=== PATIENT | male | born 1975 | race Two or more races ===

== ENCOUNTER 2023-11-18 14:14 | Emergency (ER) | payer BC, SELFPAY ==
[2023-11-18 14:34] VITALS: BP 117/79
[2023-11-18 15:07] LABS: Urine Albumin Negative (Neg - Trace); Urine Bilirubin Negative (Negative); Urine Character Clear (Clear); Urine Color Yellow; Urine Glucose Negative (Negative); Urine Ketone Negative (Negative); Urine Leukocyte Negative (Negative); Urine Nitrite Negative (Negative); Urine Occult Blood Negative (Negative); Urine Specific Gravity 1.015 (<1.030); Urine Urobilinogen Negative (Neg - 1+)
[2023-11-18 15:26] VITALS: BP 135/76
[2023-11-18 15:51] VITALS: BP 135/94
[2023-11-18 15:59] LABS: % Basophils 0.5 % (0-2); % Immature Granulocytes 0.5 % (0-0.5); % Lymphocytes 29.9 % (20.5-51.1); % Monocytes 8.1 % (1.7-9.3); Absolute Basophils 0.1 10^3/uL (0-0.2); Absolute Eosinophils 0.2 10^3/uL (0-0.7); Absolute Immature Granulocytes 0.1 10^3/uL (0-0.05); Absolute Lymphocytes 2.8 10^3/uL (1.2-3.4); Absolute Monocytes 0.8 10^3/uL (0.1-0.6); Absolute Neutrophils 5.4 10^3/uL (1.4-6.5); Hematocrit 39.4 % (39.0-52.0); Hemoglobin 14.5 g/dL (13.0-18.0); Mean Corp Hgb Conc. 36.8 g/dL (33.0-37.0); Mean Corpuscular Hgb 30.1 pg (27.0-31.0); Mean Corpuscular Volume 81.7 fL (80.0-94.0); Mean Platelet Volume 10.5 fL (7.4-10.4); Nucleated Red Blood Cells % 0 % (-); Platelet Count 193 10^3/uL (130-400); Red Blood Cell Count 4.82 10^6/uL (4.70-6.10); Red Cell Dist. Width 12.8 % (11.5-14.5); White Blood Cell Count 9.2 10^3/uL (4.8-10.8)
[2023-11-18 16:11] LABS: ALT (SGPT) 64 U/L (0-50); AST (SGOT) 58 U/L (17-59); Albumin 4.6 g/dl (3.5-5.0); Alkaline Phosphatase 88 U/L (38-126); Blood Urea Nitrogen 12 mg/dl (9-20); Calcium 9.4 mg/dl (8.4-10.2); Carbon Dioxide 29 mmol/L (22-30); Chloride 98 mmol/L (98-107); Glucose 174 mg/dl (70-99); Lipase 150 U/L (23-300); Potassium 3.8 mmol/L (3.5-5.1); Sodium 140 mmol/L (135-145); Total Bilirubin 1.1 mg/dl (0.2-1.3); Total Protein 7.5 g/dl (6.3-8.2); eGFR > 60.00
[2023-11-18 17:30] VITALS: BP 129/78
--- NOTE | 2023-11-18 17:50 | ED.GENMED ---
History of Present Illness
General
Chief Complaint: Abdominal Pain
Source: patient and spouse
Exam Limitations: none
Time Seen by Provider: 11/18/23 14:59
Nursing documentation reviewed up to this point in time: agreed with
Travel History
Have you had any contact with someone who has COVID-19?: No
Do you have any symptoms of coronavirus? Fever > 100 degrees, chills, cough, shortness of breath, sore throat, loss of taste or smell, muscle aches, or headache?: No
History of Present Illness
History of Present Illness:
48-year-old male with past medical history of GERD diabetes presenting to the emergency department today with concerns of left lower quadrant pain ongoing but worsening over the past 2 weeks. Denies any nausea vomiting diarrhea or changes in
urination. Denies any chest pain shortness of breath or fevers
Review of Systems
Review of Systems
Allergies reviewed?: Yes
All Other Systems: ROS reviewed and negative except as documented in HPI and ROS
Phy Exam
Physical Exam
Physical Exam:
GENERAL: Alert , in no apparent distress
EYE: pupils equal and reactive
NECK: Supple, no significant adenopathy.
ENT: o/p clr, mmm.
CARDIAC: Regular rate and rhythm .
LUNGS: Clear breath sounds bilaterally, no acute respiratory distress, no wheezes/rales/rhonchi
ABDOMEN: Mild discomfort to the left lower quadrant otherwise soft, without focal tenderness, no r/g, no cvat
NEUROLOGICAL: Alert and oriented, no focal neuro deficits
SKIN: Warm and dry, skin intact.
MUSCULOSKELETAL: No edema, well perfused.
PSYCH: Normal and appropriate interaction.
Course
Orders/Labs/Results
Orders:
Orders
11/18/23 14:46
Urinalysis Reflex To Culture Urgent
Date Specimen was Collected: 11/18/23
Time Specimen was Collected: 14:37
11/18/23 15:32
CT Abd/Pel (IV only)-DH only Urgent
Comment:
Reason For Exam: llq pain
11/18/23 15:49
Complete Blood Count/With Diff Urgent
Comprehensive Metabolic Panel Urgent
Lipase Urgent
Abnormal Lab Results
11/18/23
15:49
MPV 10.5 H fL
(7.4-10.4)
Abs Immat Gran (auto) 0.1 H 10^3/uL
(0-0.05)
Absolute Monos (auto) 0.8 H 10^3/uL
(0.1-0.6)
Creatinine 0.6 L mg/dL
(0.7-1.3)
Glucose 174 H mg/dl
(70-99)
ALT 64 H U/L
(0-50)
11/18/23 15:49
11/18/23 15:49
Vital Signs
Initial and Last Documented VS:
Initial Vital Signs
Temp Pulse Resp BP Pulse Ox
98.2 F 95 18 117/79 98
11/18/23 14:34 11/18/23 14:34 11/18/23 14:34 11/18/23 14:34 11/18/23 14:34
Last Documented Vital Signs
Temp Pulse Resp BP Pulse Ox
98.2 F 95 18 135/94 96
11/18/23 14:34 11/18/23 14:34 11/18/23 14:34 11/18/23 15:51 11/18/23 15:52
MDM/Problems Addressed
MDM/Problems Addressed:
48-year-old male presenting to the emergency department today with concerns of lower abdominal pain mainly to the left lower region over the past 2 weeks. No associated nausea vomiting diarrhea. On arrival vital signs are normal. Minimal pain to
palpation noted labs unremarkable CT scan does not show emergent findings
*Critical Care Note
Total Time (30-74mins, 75-104mins- exclusive of procedures): Not Applicable
ED Attending Note
-
Portions of this chart may have been created with voice recognition software.� Occasional wrong word or��sound alike� substitutions may have occurred due to the inherent limitations of voice recognition software.
Discharge Plan
Departure
Patient Disposition: Home (Routine Discharge)
Date of Disposition: 11/18/23
Time of Disposition: 18:00
Patient with high blood pressure during this ER visit?: No
Condition: Good
Covid-19: Not Applicable
Discharge Problem:
Abdominal pain
Instructions: Abdominal Pain
Prescriptions:
New
Probiotic 3 billion cell capsule
3,000 mmu cells PO DAILY 14 Days Qty: 14 0RF
Referrals:
Connie Whaley MD [Family Provider] -
Activity Restrictions/Additional Instructions:
You came to the emergency department today with concerns of abdominal pain. Here you had a reassuring assessment with normal CT scan and labs. Please follow-up closely as an outpatient. Return to the emergency department for any worsening, new or
concerning symptoms.
Interventions
Interventions:
*General Assessment Last Done: 11/18/23 14:34
*ED COVID-19 Vaccine History Last Done: 11/18/23 14:34
Discharge Date and Time
Print Language: ROMANIAN
== END 2023-11-18 18:32 | disposition home or self-care (01) ==
LOC: EMR 14:14
PROVIDERS: Emergency Medicine; Physician Assistant; EMERGENCY PHYSICIAN Emergency Medicine; FAMILY PHYSICIAN Family Medicine
DX: R10.32 Left lower quadrant pain (principal); E11.9 Type 2 diabetes mellitus without complications; K21.9 Gastro-esophageal reflux disease without esophagitis; Z79.84 Long term (current) use of oral hypoglycemic drugs
CPT/HCPCS: 99285; 74177; 80053; 81003; 83690; 85025; Q9967

== ENCOUNTER 2023-11-22 10:36 | Emergency (ER) | payer BC, SELFPAY ==
[2023-11-22 10:49] VITALS: BP 120/75
[2023-11-22] MEDS: NSS 1000 IV (11:57)
[2023-11-22] MEDS: OMNIPAQUE 50 ML PO (12:04)
[2023-11-22 12:09] VITALS: BMI 35.3
[2023-11-22 12:14] LABS: % Basophils 0.4 % (0-2); % Eosinophils 0.8 % (0-6); % Immature Granulocytes 0.5 % (0-0.5); % Lymphocytes 25.1 % (20.5-51.1); % Neutrophils 65.2 % (42.2-75.2); Absolute Eosinophils 0.1 10^3/uL (0-0.7); Absolute Monocytes 0.6 10^3/uL (0.1-0.6); Absolute Neutrophils 5.1 10^3/uL (1.4-6.5); Hemoglobin 14.1 g/dL (13.0-18.0); Mean Corp Hgb Conc. 35.3 g/dL (33.0-37.0); Mean Corpuscular Volume 85.1 fL (80.0-94.0); Mean Platelet Volume 10.2 fL (7.4-10.4); Nucleated Red Blood Cells % 0 % (-); Platelet Count 181 10^3/uL (130-400); Red Cell Dist. Width 12.7 % (11.5-14.5); White Blood Cell Count 7.8 10^3/uL (4.8-10.8)
--- NOTE | 2023-11-22 12:17 | ED.GENMED ---
History of Present Illness
<Shaylee Aviles PA-C - Last Filed: 11/22/23 18:16>
General
Chief Complaint: Flank Pain
Source: patient
Exam Limitations: none
Time Seen by Provider: 11/22/23 11:12
Nursing documentation reviewed up to this point in time: agreed with
Travel History
Have you had any contact with someone who has COVID-19?: No
Do you have any symptoms of coronavirus? Fever > 100 degrees, chills, cough, shortness of breath, sore throat, loss of taste or smell, muscle aches, or headache?: No
History of Present Illness
History of Present Illness:
pt is a 48 y/o M with h/o GERD, NIDDM, on ozempic x 1 year, HTN
here with L flank pain
started actually as LLQ pain about 5 days ago. He was seen here where he had unremarkable labs and a CAT scan with IV contrast without cause for pain identified. Patient was thinking maybe recent course of antibiotics had caused him some bloating
and constipation so he was told to take a probiotic. Patient said he did take the probiotic and felt a little bit better, limited his diet mostly fasted but then pain returned yesterday and now seems to be in the left back or left flank. Pain is
much worse with movement especially bumps in the car. Patient did have a bowel movement yesterday that was normal. He felt a little bit nauseous was still able to drink and eat some. He does not drink alcohol. Patient says the pain is 1 out of
10 currently at rest but with movement or palpation of a certain spot it is about 9 out of 10. On the way home from a concert last night they had to stop several times for him to get out of the car and stand up because it was so painful. He was
not taking anything for pain
Past History
<Shaylee Aviles PA-C - Last Filed: 11/22/23 18:16>
Past History
ED Past Medical History: HTN and NIDDM
Social History
Tobacco: Non-smoker
Alcohol: None
Drug: None
Personal:
Living: with family
Review of Systems
<Shaylee Aviles PA-C - Last Filed: 11/22/23 18:16>
Review of Systems
Allergies reviewed?: Yes
All Other Systems: Not applicable
Phy Exam
<Shaylee Aviles PA-C - Last Filed: 11/22/23 18:16>
Physical Exam
Physical Exam:
GENERAL: Alert , in no apparent distress
HEAD: NCAT
EYE: pupils equal and reactive, no nystagmus, minimal photophobia
NECK: Supple,full rom, nontender
ENT: o/p clr, mmm.
CARDIAC: Regular rate and rhythm . no edema
LUNGS: Clear breath sounds bilaterally, no acute respiratory distress, no wheezes/rales/rhonchi
ABDOMEN: Soft, L flank tender in one particular spot, no r/g, no cvat
NEUROLOGICAL: Alert and orientedx 4, cn intact, no facial asymmetry, 5/5 strength in UE/LE, sensation intact, romberg neg, ambulates without assistance, neg pronator drift
SKIN: Warm and dry, skin intact.
MUSCULOSKELETAL: No edema, well perfused.
PSYCH: Normal and appropriate interaction.
Course
<Shaylee Avlies PA-C - Last Filed: 11/22/23 18:16>
Orders/Labs/Results
Orders:
Orders
11/22/23 11:38
0.9% Sodium Chloride 1000 ml [Nss] 1,000 ml IV BOLUS
11/22/23 11:42
CT Abd/pel W Iv And Oral Contr Urgent
Comment:
Reason For Exam: left flank very tender, guarding;
Iohexol [Omnipaque] See Protocol PO NOW STA
11/22/23 11:57
Complete Blood Count/With Diff Urgent
Comprehensive Metabolic Panel Urgent
Lipase Urgent
Urinalysis Reflex To Culture Urgent
Date Specimen was Collected: 11/22/23
Time Specimen was Collected: 11:51
Abnormal Lab Results
11/22/23
11:57
Chloride 94 L mmol/L
(98-107)
Carbon Dioxide 33 H mmol/L
(22-30)
Creatinine 0.6 L mg/dL
(0.7-1.3)
Glucose 189 H mg/dl
(70-99)
Total Bilirubin 1.7 H mg/dl
(0.2-1.3)
ALT 63 H U/L
(0-50)
Urine Ketones 2+ A
(Negative)
11/22/23 11:57
11/22/23 11:57
Vital Signs
Initial and Last Documented VS:
Initial Vital Signs
Temp Pulse Resp BP Pulse Ox
98.1 F 89 20 120/75 99
11/22/23 10:49 11/22/23 10:49 11/22/23 10:49 11/22/23 10:49 11/22/23 10:49
Last Documented Vital Signs
Temp Pulse Resp BP Pulse Ox
97.6 F 86 20 119/79 98
11/22/23 13:12 11/22/23 13:12 11/22/23 10:49 11/22/23 13:12 11/22/23 13:12
<Margarito Hawthorne, DO - Last Filed: 11/22/23 12:38>
Orders/Labs/Results
Orders:
Orders
11/22/23 11:38
0.9% Sodium Chloride 1000 ml [Nss] 1,000 ml IV BOLUS
11/22/23 11:42
CT Abd/pel W Iv And Oral Contr Urgent
Comment:
Reason For Exam: left flank very tender, guarding;
Iohexol [Omnipaque] See Protocol PO NOW STA
11/22/23 11:57
Complete Blood Count/With Diff Urgent
Comprehensive Metabolic Panel Urgent
Lipase Urgent
Urinalysis Reflex To Culture Urgent
Date Specimen was Collected: 11/22/23
Time Specimen was Collected: 11:51
Abnormal Lab Results
11/22/23
11:57
Chloride 94 L mmol/L
(98-107)
Carbon Dioxide 33 H mmol/L
(22-30)
Creatinine 0.6 L mg/dL
(0.7-1.3)
Glucose 189 H mg/dl
(70-99)
Total Bilirubin 1.7 H mg/dl
(0.2-1.3)
ALT 63 H U/L
(0-50)
Urine Ketones 2+ A
(Negative)
11/22/23 11:57
11/22/23 11:57
Vital Signs
Initial and Last Documented VS:
Initial Vital Signs
Temp Pulse Resp BP Pulse Ox
98.1 F 89 20 120/75 99
11/22/23 10:49 11/22/23 10:49 11/22/23 10:49 11/22/23 10:49 11/22/23 10:49
Last Documented Vital Signs
Temp Pulse Resp BP Pulse Ox
97.6 F 86 20 119/79 98
11/22/23 13:12 11/22/23 13:12 11/22/23 10:49 11/22/23 13:12 11/22/23 13:12
Raullt;Shaylee Aviles PA-C - Last Filed: 11/22/23 18:16>
MDM/Problems Addressed
Differential Diagnosis Includes:
kidney stone, splenomegaly, comstipation, colitis, diverticululitis, mskpain
MDM/Problems Addressed:
48-year-old male with a history of gvw-tghehyd-cxulsoolo diabetes on Ozempic, GERD presents for the second time after recently being seen for left lower quadrant pain into his groin which is now progressed into his left flank and back. Patient says
he was seen here a few days ago and had a negative workup. He thought maybe the symptoms were musculoskeletal versus having some GI upset after taking antibiotics. He was given a probiotic which did help briefly. Patient did move his bowels
yesterday but he has had worsening of symptoms since yesterday evening and episodes of pretty bad pain where he was guarding his abdomen especially with bumps in the car. He ended up going to a concert but was in a lot of pain afterwards. Patient
was able to sleep but the pain was present when he woke up
He has not tried anything for pain and does not like taking pain medication. Patient denies any vomiting but had mild nausea. On exam he is comfortable and speaking in full sentences but has pain with movement and with palpation of 1 particular
area of the left flank and then have some guarding but no rebound. His back was nontender. He has no radiation of pain into his groin and no masses palpated. I do not believe the pain is within his chest cavity, there is no rib tenderness. He
was seen by ED attending who agreed to repeat the CT with oral contrast this time. Patient screening labs showed a minimal elevation of his bilirubin to 1.7 and hyperglycemia and ALT was 63 but otherwise no significant findings. His UA was
negative.
Patient CT shows diverticulosis without diverticulitis, moderate stool in the colon but no other findings. Patient refused any pain medication here. He will trial continuing the probiotic, was offered Bentyl but declined. Will try Tylenol for
pain and use MiraLAX twice a day to try to empty his colon
<Shaylee Aviles PA-C - Last Filed: 11/22/23 18:16>
*Critical Care Note
Total Time (30-74mins, 75-104mins- exclusive of procedures): Not Applicable
ED Attending Note
<Shaylee Aviles PA-C - Last Filed: 11/22/23 18:16>
-
Portions of this chart may have been created with voice recognition software.� Occasional wrong word or��sound alike� substitutions may have occurred due to the inherent limitations of voice recognition software.
<Margarito Hawthorne, DO - Last Filed: 11/22/23 12:38>
ED Attending Note
Patient seen and examined by attending physician: Yes
I performed a history and physical exam of patient and discussed management with resident, I reviewed resident's note and agree with documented findings and plan of care.: Yes
ED Attending Note:
I have reviewed and agree with history and treatment plan by Gloria Aviles. My exam reveals 48-year-old male with left CVA tenderness, complaining of left upper quadrant pain. This patient new, concerning in light of his recent splenomegaly. Will
CT abdomen pelvis.
Discharge Plan
Departure
Patient Disposition: Home (Routine Discharge)
Date of Disposition: 11/22/23
Time of Disposition: 15:52
Patient with high blood pressure during this ER visit?: No
Condition: Fair
Covid-19: Not Applicable
Discharge Problem:
Flank pain, Constipation
Instructions: Flank Pain (DC), Constipation, Adult ED
Prescriptions:
No Action
Probiotic 3 billion cell capsule
3,000 mmu cells PO DAILY 14 Days Qty: 14 0RF
Referrals:
Connie Whaley MD [Family Provider] - Follow up in 2-3 days
Activity Restrictions/Additional Instructions:
Not entirely sure the cause of your symptoms but it is reassuring that your CAT scan did not show any acute findings. You do have diverticulosis but no evidence of diverticulitis and no findings in your blood work to support diverticulitis. Your
sugar was 189. Make sure to stay hydrated. Your bilirubin which is one of your liver markers is minimally elevated but this could be from dehydration. Please have this repeated by your family doctor in 2 weeks when you go. Eat a bland diet for
the next day or 2. Drink fluids. Use MiraLAX once or twice a day for 2 days in a row to help empty your colon. You can continue the probiotic. Take Tylenol every 6 hours for pain. Watch out for a rash and if this happens you should return or
see your doctor. Return to the ER for severe worsening pain, fever, chills, trouble breathing, vomiting, bloody stool or any concerns
Interventions
Interventions:
*Risk Screen - Suicide Last Done: 11/22/23 10:49
*General Assessment Last Done: 11/22/23 10:49
*Neglect/Abuse Screening Last Done: 11/22/23 10:49
ED- Fall Risk Assessment Last Done: 11/22/23 12:10
*ED COVID-19 Vaccine History Last Done: 11/22/23 12:09
*Nursing Disposition Last Done: 11/22/23 16:10
CG-Vdxent-Diojnqknuk Assessment Last Done: 11/22/23 12:08
ED-Male Genitourinary Assessment Last Done: 11/22/23 12:08
Discharge Date and Time
Discharge Date/Time: 11/22/23 16:10
Print Language: MONGOLIAN
[2023-11-22 12:23] LABS: Urine Albumin Negative (Neg - Trace); Urine Bilirubin Negative (Negative); Urine Character Clear (Clear); Urine Color Yellow; Urine Glucose Negative (Negative); Urine Ketone 2+ (Negative); Urine Leukocyte Negative (Negative); Urine Nitrite Negative (Negative); Urine Occult Blood Negative (Negative); Urine Specific Gravity 1.015 (<1.030); Urine Urobilinogen Negative (Neg - 1+)
[2023-11-22 12:30] LABS: ALT (SGPT) 63 U/L (0-50); AST (SGOT) 53 U/L (17-59); Albumin 4.7 g/dl (3.5-5.0); Alkaline Phosphatase 60 U/L (38-126); Blood Urea Nitrogen 12 mg/dl (9-20); Calcium 9.3 mg/dl (8.4-10.2); Carbon Dioxide 33 mmol/L (22-30); Chloride 94 mmol/L (98-107); Estimated Creatinine Clearance > 125 ml/min; Glucose 189 mg/dl (70-99); Lipase 108 U/L (23-300); Potassium 4.1 mmol/L (3.5-5.1); Sodium 136 mmol/L (135-145); Total Bilirubin 1.7 mg/dl (0.2-1.3); Total Protein 7.5 g/dl (6.3-8.2); eGFR > 60.00
[2023-11-22 13:12] VITALS: BP 119/79
--- NOTE | 2023-11-22 16:10 | EDRN ---
Reviewed discharge instructions with patient. Verbalized understanding. Ambulated with steady gait to the lobby.
--- NOTE | 2023-11-22 16:15 | EDRN ---
Reviewed discharge instructions with patient. Verbalized understanding. Ambulated with steady gait to the lobby.
== END 2023-11-22 16:10 | disposition home or self-care (01) ==
LOC: EMR 10:36
PROVIDERS: Physician Assistant; EMERGENCY PHYSICIAN Emergency Medicine; FAMILY PHYSICIAN Family Medicine
DX: R10.9 Unspecified abdominal pain (principal); K59.00 Constipation, unspecified; K21.9 Gastro-esophageal reflux disease without esophagitis; E11.65 Type 2 diabetes mellitus with hyperglycemia; I10 Essential (primary) hypertension
CPT/HCPCS: 99284; 96360; 74177; 80053; 81003; 83690; 85025; Q9967